=== PATIENT | male | born 1985 | race Caucasian/White ===

== ENCOUNTER 2016-10-28 16:44 | Emergency (ER) | payer OTHER ==
[~2016-10-28] VITALS: Ht 175.3 cm; Wt 75.7 kg
[2016-10-28 16:50] VITALS: BP 129/89
[2016-10-28] MEDS ORDERED: KETOROLAC TROMETHAMINE 60 MG/2 ML INJ. IM ONE (17:00)
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
--- NOTE | 2016-10-28 17:30 | RAD ---
Right hand, 3 views, 10/28/2016: History: Injury No acute fracture or dislocation is identified. There is a lucency in the radial aspect of the fourth metacarpal head with poor definition of the overlying cortex. There is mild soft tissue swelling over the dorsum of the hand in the metacarpal region. IMPRESSION: 1. Small lytic appearing lesion in the fourth metacarpal head with diagnostic considerations including infection, a bone erosion on an arthritic basis or an intraosseous epidermoid cyst due to old trauma. A neoplastic etiology is less likely. 2. Otherwise no acute bony abnormality is detected.
== END 2016-10-28 17:50 | disposition home or self-care (01) ==
LOC: ER 16:44 → EEVIPCON 16:44 → ER 17:50
DX: S60.511A Abrasion of right hand, initial encounter (principal); Y04.0XXA Assault by unarmed brawl or fight, initial encounter; Y93.89 Activity, other specified; Y92.89 Other specified places as the place of occurrence of the external cause; Y99.8 Other external cause status
CPT/HCPCS: 73130; 96372; 99284; J1885